=== PATIENT | female | born 2000 | race Caucasian/White ===

== ENCOUNTER 2023-09-24 21:13 | Inpatient (IN) ==
[2023-09-24] MEDS ORDERED: LIDOCAINE 1% LOCAL 20 ML VIAL INFIL PRN (22:03)
[2023-09-24] MEDS ORDERED: PENICILLIN GK 6 MU in DEXTROSE 5% 250 ML IV STA (22:03)
[2023-09-24] MEDS ORDERED: OXYTOCIN 30 UNITS/NSS 30 UNITS/500 ML BAG IV PRN ×2 (22:03)
--- NOTE | 2023-09-24 22:16 | History & Physical Report ---
Date of Service September 24, 2023 Assessment & Plan (1) Supervision of normal first : Plan: Lundberg bulb was placed, upon placement, spontaneous rupture of membranes for clear fluid. Lundberg bulb was removed. Therefore, patient was admitted to L&D for IOL. Labs, EFM/toco. She is agreeable to start pitocin for induction of labor. History of Present Illness Chief Complaint: IOL Primary Care Provider: NO PCP 23yo @ 39 6/7, presented to L&D for lundberg bulb insertion for IOL. with GBS+. Allergies Allergy/AdvReac Type Severity Reaction Status Date / Time No Known Allergies Allergy Verified 09/24/23 10:24 Home Medications Medication Instructions Recorded Confirmed Type vit no.95-ferrous 1 tab PO DAILY 04/03/23 09/24/23 History fumarate 28 mg-folic acid 800 mcg tablet () ondansetron HCl 4 mg tablet 4 mg PO Q8H PRN nausea and 08/01/23 09/24/23 Rx vomiting #20 tabs breast pump #1 ea 08/16/23 09/24/23 Rx Patient History Medical History No pertinent past medical history Surgical History S/P appendectomy S/P wisdom tooth extraction No pertinent past surgical history Family History Denies family history of Ovarian cancer Breast cancer Colorectal cancer Social History Smoking Status: Never smoker Hx Alcohol Use: No Hx Substance Use: No Preferred Language: [place] 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 Beliefs That Will Affect Care: None marital status: Single marital status details: Vazquez Monahan (24) [phone] Current Living Situation: Significant Other Current Living Situation Comment: mom, noel, 2 brothers, 2 horses current occupational status: unemployed Other Information That Helps Us Care for You: No Feels Safe at Home: Yes Safety Concerns: Feels Safe At This Time Review of Systems All systems reviewed & are unremarkable except as noted in HPI & below Physical Exam Physical Exam: FHT Cat 1 Sabin occasional SVE //high Constitutional: WD/WN, vitals as above Respiratory: normal respiratory effort, lungs clear to auscultation no respiratory distress Cardiovascular: Rate/Rhythm: regular rate and regular rhythm Gastrointestinal (Abdomen): Inspection/Auscultation: abdomen normal to in spection Percussion/Palpation: abdomen soft; abdomen nontender Gravid. No s/s chorio or abruption. Skin: no rashes, warm and dry Psychiatric: A+Ox3, euthymic affect Results & Data Vital Signs (Past 12 Hours) Vital Signs Temp Pulse Resp BP 09/24/23 21:34 36.8 C 18 09/24/23 21:31 68 124/66 Coding Level of Care Code None Diagnoses Supervision of normal first Z34.00
[2023-09-24 22:48] LABS: Hematocrit (blood only) 35.3 % (37.0-47.0); Hemoglobin 12.7 g/dl (12.0-16.0); Mean Corpuscular Hemoglobin 31.9 pg (25.0-34.0); Mean Corpuscular Volume 88.7 fL (80.0-100.0); Mean Platelet Volume 10.7 fL (9.4-12.4); Platelet Count 151 K/uL (130-400); RDW Coefficient of Variation 12.7 % (11.5-14.5); RDW Standard Deviation 41.5 fL (36.4-46.3); Red Blood Count 3.98 M/uL (4.20-5.40); White Blood Count 11.42 K/ul (4.8-10.8)
[2023-09-24] MEDS: LACTATED RINGER'S 1,000 ML IV PRN (22:54)
[2023-09-25] MEDS: PENICILLIN GK 3 MU in DEXTROSE 5% 100 ML IV PRN ×2 (03:21→07:24)
--- NOTE | 2023-09-25 04:02 | Anesthesiology Consultation ---
Date of Service September 25, 2023 Assessment & Plan (1) Encounter for pre-operative examination: Chart Review Chart Review: Acceptable Risk for Labor Epidural History Height/Weight Height: 5 ft 10 in Weight: 73.936 kg Allergies Allergy/AdvReac Type Severity Reaction Status Date / Time No Known Allergies Allergy Verified 09/24/23 10:24 Medications Home Medications Medication Instructions Recorded Confirmed Last Taken vit no.95-ferrous 1 tab PO DAILY 04/03/23 09/24/23 09/24/23 09:00 fumarate 28 mg-folic acid 800 mcg tablet () ondansetron HCl 4 mg tablet 4 mg PO Q8H PRN nausea and 08/01/23 09/24/23 Unknown vomiting #20 tabs breast pump #1 ea 08/16/23 09/24/23 Unknown Active Medications Generic Name Dose Route Start Last Admin Trade Name Freq PRN Reason Stop Dose Admin Oxytocin 30 units in 500 mls @ 5 mls/hr 09/24/23 22:03 09/25/23 02:49 Pitocin 30 Units/Nss IV 09/26/23 22:02 0.3 units/hr .Q24H PRN 5 mls/hr Labor Induction/Augmentation Titration Protocol 0.3 UNITS/HR Lactated Ringer's 1,000 mls @ 125 mls/hr 09/24/23 22:03 09/25/23 01:19 Lr IV 09/26/23 22:02 125 mls/hr .Q8H PRN Infusion L&D Protocol Protocol Penicillin G Potassium 3 mu/ 106 mls @ 100 mls/hr 09/25/23 01:03 09/25/23 03:21 Dextrose IV 10/05/23 01:02 100 mls/hr Q4H PRN Administration GBS(+) Until Delivery Past Medical History Medical History No pertinent past medical history Past Family History Family History Denies family history of Ovarian cancer Breast cancer Colorectal cancer Past Surgical History Surgical History S/P appendectomy S/P wisdom tooth extraction No pertinent past surgical history Social History Smoking Status: Never smoker Hx Alcohol Use: No Hx Substance Use: No Physical Exam Vital Signs Last Vital Signs Temp 36.5 C 09/25/23 03:30 Pulse 59 L 09/25/23 03:49 Resp 18 09/25/23 03:30 BP 108/77 09/25/23 03:49 Testing Laboratory Results 09/24/23 22:25
[2023-09-25] MEDS: LACTATED RINGER'S 1,000 ML IV PRN (04:32)
[2023-09-25] MEDS ORDERED: fentANYL 2 MCG/ML BUPIVacaine 0.125%-NSS 100ML BAG EPI PRN (04:34)
[2023-09-25] MEDS ORDERED: BUPIVACAINE 0.25% PF 30 ML VIAL EPI STA (04:34)
[2023-09-25] MEDS ORDERED: ONDANSETRON INJ 2 MG/ML 2 ML VIAL IV PRN (04:34)
[2023-09-25] MEDS ORDERED: BUPIVACAINE 0.25% PF 30 ML VIAL EPI PRN (04:34)
[2023-09-25] MEDS ORDERED: NALOXONE HCL 0.4 MG/1 ML VIAL/CARP IV PRN (04:34)
[2023-09-25] MEDS ORDERED: LIDOCAINE 2% MPF LOCAL 5 ML VIAL EPI PRN (04:34)
[2023-09-25] MEDS ORDERED: ROPIVACAINE 0.5% PF 5 MG/ML 20 ML VIAL EPI PRN (04:34)
[2023-09-25] MEDS ORDERED: SODIUM CHLORIDE 0.9% PF INJ 10 ML VIAL EPI STA (04:34)
[2023-09-25] MEDS ORDERED: ePHEDrine sulfate 50 MG/ML AMP IV PRN (04:34)
[2023-09-25] MEDS ORDERED: fentaNYL citrate PF 100 MCG/2 ML VIAL EPI STA (04:34)
[2023-09-25] MEDS ORDERED: fentaNYL citrate PF 100 MCG/2 ML VIAL EPI PRN (04:34)
[2023-09-25] MEDS ORDERED: LIDOCAINE 2%/EPINEPHRINE 1:200,000 20 ML PF EPI STA (04:34)
[2023-09-25] MEDS ORDERED: SODIUM CHLORIDE 0.9% PF INJ 10 ML VIAL EPI PRN (04:34)
[2023-09-25] MEDS ORDERED: NALOXONE HCL 1 MG in SODIUM CHLORIDE 0.9% 1,000 ML IV PRN (04:34)
--- NOTE | 2023-09-25 07:40 | Labor Progress Brief Note ---
Date of Service September 25, 2023 Subjective Comfortable with epidural. FHT Cat 1 [place] Q2 SVE 6/100/0 per RN Continue labor. Assessment & Plan Admission and Anticipated Discharge Date Admission Date: September 24, 2023 Results & Data Vital Signs (Past 12 Hours) Vital Signs Temp Pulse Resp BP Pulse Ox 09/25/23 07:36 62 100 09/25/23 07:31 58 L 100 09/25/23 07:29 60 108/61 09/25/23 07:26 100 09/25/23 07:26 65 09/25/23 07:26 63 91 09/25/23 07:21 56 L 100 09/25/23 07:16 64 100 09/25/23 07:14 51 L 110/63 09/25/23 07:11 55 L 100 09/25/23 07:06 59 L 100 09/25/23 07:01 68 100 09/25/23 07:00 56 L 112/70 09/25/23 06:56 53 L 100 09/25/23 06:51 50 L 100 09/25/23 06:46 52 L 110/67 100 09/25/23 06:41 53 L 100 09/25/23 06:36 58 L 99 09/25/23 06:31 51 L 100 09/25/23 06:29 49 L 110/61 09/25/23 06:26 51 L 99 09/25/23 06:21 52 L 99 09/25/23 06:16 36.7 C 52 L 18 99 09/25/23 06:14 63 105/58 L 09/25/23 06:11 49 L 100 09/25/23 06:06 51 L 100 09/25/23 06:01 52 L 100 09/25/23 06:00 48 L 109/66 09/25/23 05:56 52 L 100 09/25/23 05:51 53 L 100 09/25/23 05:46 49 L 100 09/25/23 05:45 49 L 108/61 09/25/23 05:41 53 L 99 09/25/23 05:36 61 99 09/25/23 05:31 64 100 09/25/23 05:29 59 L 112/63 09/25/23 05:26 63 100 09/25/23 05:21 51 L 100 09/25/23 05:16 68 99 09/25/23 05:14 58 L 116/64 09/25/23 05:11 56 L 98 09/25/23 05:06 66 99 09/25/23 05:01 64 99 09/25/23 04:59 60 110/70 09/25/23 04:56 69 98 09/25/23 04:51 64 98 09/25/23 04:46 64 99 09/25/23 04:43 59 L 115/66 09/25/23 04:41 65 99 09/25/23 04:40 59 L 116/65 09/25/23 04:37 56 L 119/65 09/25/23 04:36 59 L 100 09/25/23 04:34 62 133/64 09/25/23 04:32 58 L 138/62 09/25/23 04:31 60 100 09/25/23 04:28 74 133/85 09/25/23 04:26 75 100 09/25/23 04:25 72 135/88 09/25/23 04:21 69 100 09/25/23 04:20 84 143/80 H 09/25/23 04:16 76 100 09/25/23 03:49 59 L 108/77 09/25/23 03:30 18 09/25/23 03:30 36.5 C 18 09/25/23 03:19 73 121/92 09/25/23 02:50 57 L 110/56 L 09/25/23 02:18 77 118/68 09/25/23 01:49 52 L 110/59 L 09/25/23 01:45 18 09/25/23 01:45 36.5 C 18 09/25/23 01:18 78 124/68 09/24/23 23:48 18 09/24/23 23:48 36.8 C 18 09/24/23 23:48 64 09/24/23 23:48 121/62 09/24/23 21:34 36.8 C 18 09/24/23 21:31 68 124/66 Coding Level of Care Code None
[2023-09-25] MEDS ORDERED: bisacodyL 10 MG SUPP PR PRN (11:02)
[2023-09-25] MEDS ORDERED: BENZOCAINE 20% SPRY 85 APPLN/85 GM CAN EXT PRN (11:02)
[2023-09-25] MEDS ORDERED: oxyCODONE/ACETAMINOPHEN 5mg/325mg TAB PO PRN (11:02)
[2023-09-25] MEDS ORDERED: HYDROCORTISONE ACETATE 25 MG SUPP PR PRN (11:02)
[2023-09-25] MEDS ORDERED: ACETAMINOPHEN 325 MG TAB PO PRN (11:02)
[2023-09-25] MEDS ORDERED: DIPHTHERIA/TETANUS/PERTUSSIS Vaccine (Tdap, Age 7+yrs) 0.5mL SYR/VL IM ONE (11:02)
[2023-09-25] MEDS ORDERED: OXYTOCIN 30 UNITS/NSS 30 UNITS/500 ML BAG IV PRN (11:02)
--- NOTE | 2023-09-25 11:55 | Anesthesia Procedure Note ---
Date of Service September 25, 2023 Anesthesia Post Epidural Note Vital Signs Vital Signs: Temp Pulse Resp BP Pulse Ox 98.4 F 96 H 16 122/75 100 09/25/23 11:00 09/25/23 11:44 09/25/23 11:30 09/25/23 11:44 09/25/23 10:56 Pain Intensity Abdomen: Pain Intensity: 4 Notes Mental Status: alert / awake / arousable and participated in evaluation Nausea / Vomiting: adequately controlled Pain: adequately controlled Airway Patency, RR, SpO2: stable & adequate BP & HR: stable & adequate Hydration State: stable & adequate Neuraxial Anesthesia: was administered and sensory block is resolving Anesthetic Complications: no major complications apparent and Pt Satisfied with anesthetic care Epidural: Removed without complications and With tip intact
[2023-09-25 13:12] VITALS: RESP 18
[2023-09-25] MEDS: IBUPROFEN 600 MG TAB PO PRN ×2 (13:53→21:17)
[2023-09-25] MEDS: DOCUSATE SODIUM 100 MG CAP PO SCH (21:17)
[2023-09-26 03:32] VITALS: O2SAT 99
[2023-09-26] MEDS: IBUPROFEN 600 MG TAB PO PRN ×2 (03:35→12:24)
[2023-09-26 06:26] LABS: Hematocrit (blood only) 31.4 % (37.0-47.0); Hemoglobin 10.9 g/dl (12.0-16.0); Mean Corpuscular Hemoglobin 31.7 pg (25.0-34.0); Mean Corpuscular Hgb Conc 34.7 g/dL (32.0-36.0); Mean Corpuscular Volume 91.3 fL (80.0-100.0); Mean Platelet Volume 10.7 fL (9.4-12.4); Platelet Count 137 K/uL (130-400); RDW Standard Deviation 42.1 fL (36.4-46.3); Red Blood Count 3.44 M/uL (4.20-5.40); White Blood Count 12.14 K/ul (4.8-10.8)
--- NOTE | 2023-09-26 06:38 | History & Physical Report ---
Date of Service September 26, 2023 Assessment & Plan (1) care following vaginal delivery: Plan: Doing well Encourage ambulation pain control discharge today Admission and Anticipated Discharge Date Admission Date: September 24, 2023 History of Present Illness Chief Complaint: Primary Care Provider: LIZZY PCP 23 yo post day 1 s/p Ambulation: ambulating normally Voiding: no voiding problems Passing Gas:: Yes Diet Tolerance:: regular diet Lochia:: Small Feeding Type:: breast feeding Current Pain Level: mild Resting comfortably this AM in NAD. Denies BLUE, CP, SOB, N/V/D, LE pain/swelling. Desires discharge today Allergies Allergy/AdvReac Type Severity Reaction Status Date / Time No Known Allergies Allergy Verified 09/24/23 10:24 Home Medications Medication Instructions Recorded Confirmed Type vit no.95-ferrous 1 tab PO DAILY 04/03/23 09/24/23 History fumarate 28 mg-folic acid 800 mcg tablet () ondansetron HCl 4 mg tablet 4 mg PO Q8H PRN nausea and 08/01/23 09/24/23 Rx vomiting #20 tabs breast pump #1 ea 08/16/23 09/24/23 Rx Patient History Medical History No pertinent past medical history Surgical History S/P appendectomy S/P wisdom tooth extraction No pertinent past surgical history Family History Denies family history of Ovarian cancer Breast cancer Colorectal cancer Social History Smoking Status: Never smoker Hx Alcohol Use: No Hx Substance Use: No Preferred Language: Chinese 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 Skin: warm, dry, intact HEENT: NC/AT, anicteric sclera, conjunctiva without injection, moist mucus membranes. Heart: +S1/S2, regular, no m/r/g Lungs: equal air entry bilaterally, no rales/rhonchi/wheezes Abd: +BS, soft, NT/ND, uterine fundus firm at umbilicus Ext: warm, no clubbing/cyanosis or edema, Yanelis's neg. Neuro: speech intact, no facial droop, moving all extremities on command. Results & Data Vital Signs (Past 12 Hours) Vital Signs Temp Pulse Resp BP Pulse Ox O2 Del Method 09/26/23 03:31 36.5 C 67 18 102/61 99 Room Air 09/25/23 22:55 36.6 C 63 18 121/69 100 Room Air 09/25/23 21:20 36.8 C 64 18 105/65 100 Room Air 09/25/23 18:57 36.8 C 64 18 105/65 100 Room Air Resident Activity Tracking Resident Involvement: Resident Care Provided Care Provided: Adult Hospital Medicine
--- NOTE | 2023-09-26 06:51 | Obstetrical Progress Note ---
Date of Service September 26, 2023 Assessment & Plan (1) care following vaginal delivery: Plan Doing well Pain control Encourage ambulation Discharge today Admission and Anticipated Discharge Date Admission Date: September 24, 2023 Supervising Physician Co-Signing Physician Notes Resident Physician Supervision Note: I interviewed and examined the patient. Discussed with Dr. Coombs and agree with findings and plan as documented in the note. Any exceptions or clarifications are listed here: [None] Documented By: Pearl Ovalles MD, FACOG Subjective 23 yo post day 1 s/p Ambulation: ambulating normally Voiding: no voiding problems Passing Gas:: Yes Diet Tolerance:: regular diet Lochia:: Small Feeding Type:: breast feeding Current Pain Level: mild Resting comfortably this AM in NAD. Denies BLUE, CP, SOB, N/V/D, LE pain/swelling. Desires discharge today Review of Systems Review of Systems: reviewed, per HPI Physical Exam Physical Exam: General: patient resting comfortably, NAD, non-toxic in appearance, answers questions appropriately. Skin: warm, dry, intact HEENT: NC/AT, anicteric sclera, conjunctiva without injection, moist mucus membranes. Heart: +S1/S2, regular, no m/r/g Lungs: equal air entry bilaterally, no rales/rhonchi/wheezes Abd: +BS, soft, NT/ND, uterine fundus firm at umbilicus Ext: warm, no clubbing/cyanosis or edema, Yanelis's neg. Neuro: speech intact, no facial droop, moving all extremities on command. Results & Data Vital Signs (Past 12 Hours) Vital Signs Temp Pulse Resp BP Pulse Ox O2 Del Method 09/26/23 03:31 36.5 C 67 18 102/61 99 Room Air 09/25/23 22:55 36.6 C 63 18 121/69 100 Room Air 09/25/23 21:20 36.8 C 64 18 105/65 100 Room Air 09/25/23 18:57 36.8 C 64 18 105/65 100 Room Air Resident Activity Tracking Resident Involvement: Resident Care Provided Care Provided: Adult Hospital Medicine
[2023-09-26] MEDS ORDERED: PRENATAL VITAMIN 1 TAB PO SCH (08:00)
[2023-09-26] MEDS: DOCUSATE SODIUM 100 MG CAP PO SCH (08:11)
[2023-09-26 09:22] VITALS: BP 110/71; PULSE 56; TEMP 97.9
[2023-09-26] MEDS ORDERED: bisacodyL 5 MG TABEC PO SCH (20:00)
--- NOTE | 2023-10-09 13:14 | Delivery Summary ---
Vaginal Delivery Summary Date of Service delivery 09/25/23 - late note Vaginal Delivery Summary and 1st Degree LAC Vaginal Delivery Summary: Pre-delivery diagnoses: 23yo @ 40 0/7, IOL, AROM with lundberg bulb insertion Post-delivery diagnoses: Procedure: Surgeon: Shahla Jackson DO Complications: none Findings: Viable . Apgars: . Weight pending, please see nursery records Estimated blood loss: Description of delivery: The patient progressed to complete with epidural anesthesia. She then began to push. She spontaneously vaginally delivered a viable from the cephalic presentation. The head delivered in GLADYS position. The anterior shoulder delivered, followed by the posterior shoulder, followed by the body. The baby was placed on mother's abdomen and a spontaneous cry was heard. Delayed cord clamping was employed, and the cord was doubly clamped and cut. A segment was retained for cord gases. Cord blood was obtained. The placenta was delivered spontaneously intact with a 3-vessel cord. The uterus and vagina were swept of clots and debris. IV pitocin was given. The uterus became firm. The cervix, vagina, and perineum were inspected and no lacerations were noted. Excellent hemostasis was observed. The mother and baby are recovering in stable and good condition in the room. Sponge and instrument counts were correct x 2. Shahla Jackson [facility] V[facility] Delivery Charge Delivery Type Details: and 1st Degree LAC
--- NOTE | 2023-10-11 17:43 | Delivery Summary ---
Vaginal Delivery Summary Date of Service 09/25/23 Vaginal Delivery Summary and 1st Degree LAC Patient is a 23-year-old G1, P0 female who had presented on her due date with active labor. She received effective epidural analgesia. She pushed effectively over intact perineum for delivery of a viable male . A loose nuchal cord was reduced after the head was delivered. He was placed on the mother's abdomen for further attention and drying. After 1 minute, the cord was clamped and cut. After cord blood was obtained, the placenta was expressed intact with a three-vessel cord. First-degree perineal laceration was repaired with 3-0 chromic in the usual fashion. bleeding was controlled with fundal massage and dilute Pitocin. Mother and infant were doing well after delivery. [facility] [place] Vaginal Delivery Charge Delivery Type Details: and 1st Degree LAC
== END 2023-09-26 15:32 | disposition home or self-care (01) | DRG 807 ==
LOC: OPB 21:13 → 4S1 21:16 → 4E2 09-25 13:55